=== PATIENT | female | born 1955 | race Two or more races ===

== ENCOUNTER 2018-12-05 05:51 | Day surgery (SDC) | payer BC ==
[~2018-12-05] VITALS: Ht 157.5 cm; Wt 57.6 kg
[2018-12-05] VITALS (8 sets, daily range): BP systolic 100–110; BP diastolic 47–66
[~2018-12-05 05:51] MED LIST: BIOTIN1 MG PO; CYMBALTA30 MG ORAL; ENBREL50 MG/1 M1 SUBQ; FOLIC ACID1 MG ORAL; IMIPRAMINE HCL25 MG PO; LEVOTHYROXINE75 MCG ORAL; POTASSIUM CHLOR8 ME3 PO; TRAZODONE HCL50 MG ORAL; VITAMIN D400 INTLU ORAL; XANAX0.25 MG ORAL; [UNRECOGNIZED DRUG - OTHER] PO
[2018-12-05] MEDS ORDERED: LR 1000ml 1,000 ML IVLG SCH ×2 (06:40→07:00)
--- NOTE | 2018-12-05 06:40 | Anethesia Preoperative Eval ---
Anesthesia Pre-op PMH/ROS General Date of Evaluation: December 05, 2018 Anesthesiologist: Rui ASA Score: ASA 2 Mallampati Score Class I : Soft palate, uvula, fauces, pillars visible Class II: Soft palate, uvula, fauces visible Class III: Soft palate, base of uvula visible Class IV: Only hard plate visible Mallampati Classification: Class II Surgeon: Dionne Diagnosis: Screening Surgical Procedure: colonoscopy Anesthesia History: none Family History: no anesthesia problems Allergies: Coded Allergies: SULFA (SULFONAMIDE ANTIBIOTICS) (Verified Allergy, Severe, 12/04/18) SWELLING, SKIN BREAK OUT Medications: see eMAR Patient NPO?: Yes NPO Date: December 04, 2018 NPO Time: 22:00 Past Medical History Cardiovascular: Denies: HTN, CAD, NV, valve dz, arrhythmia, other Pulmonary: Denies: asthma, COPD, BEN, other Gastrointestinal/Genitourinary: Reports: GERD; Denies: CRI, ESRD, other Neurologic/Psychiatric: Reports: depression/anxiety - panic disorder; Denies: dementia, CVA, TIA, other Endocrine: Reports: hypothyroidism; Denies: DM, steroids, other HEENT: Denies: cataract (L), cataract (R), glaucoma, [place] (L), [place] (R), other Hematology/Immune: Denies: anemia, DVT, bleeding disorder, other Musculoskeletal/Integumentary: Reports: other - RA; Denies: OA, RA, DJD, DDD, edema PSxH Narrative: c/s, lap appy Anesthesia Pre-op Phys. Exam Physician Exam Last Vital Signs Date Time Temp Pulse Resp B/P (MAP) Pulse Ox O2 Delivery O2 Flow Rate FiO2 12/05/18 06:22 Room Air 12/05/18 06:19 97.1 61 18 109/57 99 Constitutional: NAD Cardiovascular: RRR Respiratory: CTA Airway Exam Mallampati Score: Class II MO: full ROM: full Teeth: intact Anesthesia Pre-op A/P Labs see chart Studies Pre-op Studies: EKG - sr Risk Assessment & Plan Assessment: ASA II Plan: MAC Status Change Before Surgery: No Pre-Antibiotics Drug: N/A Mellissa Shah MD December 05, 2018 06:40
[2018-12-05] MEDS ORDERED: DiphenhydrAMINE 50mg/ml Inj IVP PRN (06:45)
[2018-12-05] MEDS ORDERED: Lidocaine 1% MPF 10mg/ml 5ml ONE (07:00)
[2018-12-05] MEDS ORDERED: Propofol 200mg/20ml IV ONE (07:00)
[2018-12-05] MEDS ORDERED: LR 1000ml ONE (07:00)
--- NOTE | 2018-12-05 07:06 | Pre-Procedure Note/Attestation ---
Pre-Procedure Note/Attestation Complete Prior to Procedure Planned Procedure: not applicable Procedure Narrative: Colonoscopy, possible biopsy, polypectomy, hemostasis, submucosal injection Indications for Procedure Pre-Operative Diagnosis: cancer screening Attestation I attest that I discussed the nature of the procedure; its benefits; risks and complications; and alternatives (and the risks and benefits of such alternatives ), prior to the procedure, with the patient (or the patient's legal loss prevention representative). I attest that, if there was a reasonable possibility of needing a blood transfusion, the patient (or the patient's legal loss prevention representative) was given the [facility] standardized written summary, pursuant to the Yovany Leonardo Blood Safety Act ([place] Health and Safety Code # 1645, as amended). I attest that I re-evaluated the patient just prior to the surgery and that there has been no change in the patient's H&P, except as documented below: Irene Truong MD December 05, 2018 07:06
--- NOTE | 2018-12-05 07:43 | Endoscopy Procedure Note ---
Endoscopy Procedure Note General Procedures Performed: colonoscopy Specimen: yes Pt Tolerated Procedure Well: Yes Estimated Blood Loss: minimal Anesthesia Anesthesiologist: Mellissa Fabian MD Anesthesia: moderate sedation Medications Medication Given: see anesthesia record Inserted Devices Implant(s) used?: No Quality Quality of Bowel Preparation: Excellent Did scope reach the cecum?: Yes Was there any complications?: No GI Core Measures 50 yrs or older w/o bx or poly: No 10yrs. F/U recommended: No Irene Truong MD December 05, 2018 07:43
--- NOTE | 2018-12-05 07:53 | Immediate Post-Op Evaluation ---
Immediate Post-Op Evalulation Immediate Post-Op Evalulation Procedure: Colonoscopy Date of Evaluation: December 05, 2018 Time of Evaluation: 07:54 IV Fluids: 500 Blood Products: 0 Estimated Blood Loss: 0 Urinary Output: 0 Blood Pressure Systolic: 100 Blood Pressure Diastolic: 47 Pulse Rate: 66 Respiratory Rate: 16 O2 Sat by Pulse Oximetry: 100 Temperature (Fahrenheit): 98.1 Pain Score (1-10): 0 Nausea: No Vomiting: No Complications 0 Patient Status: awake, reacts, patent, none Hydration Status: adequate Drug: N/A Mellissa Shah MD December 05, 2018 07:53
--- NOTE | 2018-12-05 07:54 | 48 Hour Post Anesthesia Eval ---
Post Anesthesia Evaluation Procedure: Colonoscopy Date of Evaluation: December 05, 2018 Airway: patent Nausea: No Vomiting: No Pain Intensity: 0 Hydration Status: adequate Cardiopulmonary Status: at baseline Mental Status/LOC: patient returned to baseline Post-Anesthesia Complications: 0 Follow-up care needed: ready to discharge Mellissa Shah MD December 05, 2018 07:54
--- NOTE | 2018-12-05 16:45 | Operative Note - Dictated ---
DATE OF OPERATION: 12/05/2018 PRE-PROCEDURE DIAGNOSIS: Cancer screening. POSTPROCEDURE DIAGNOSES: Polyps x2 (cecum, sigmoid colon), mild internal hemorrhoids, hypertrophied anal papilla. PROCEDURE: Colonoscopy with cold forceps biopsy. SURGEON: Irene Truong M.D. ANESTHESIOLOGIST: Mellissa Fabian M.D. ANESTHESIA: Propofol sedation. INDICATION FOR PROCEDURE: The patient is a 63-year-old [place] female, who was sent to my office by her physician, Dr. Cameron Lemon for colorectal surgical evaluation and for follow up colonoscopy. The patient's last colonoscopy was 10 years ago in 2008, which was negative per the patient. In light of the patient's age, it was determined at this time to proceed with a followup colonoscopy. DESCRIPTION OF PROCEDURE: Upon consent of the patient, the patient was brought to the procedure room, and placed in the left lateral decubitus position. Once adequate sedation was established with propofol drip, a digital rectal exam was performed, which showed some moderate internal hemorrhoids and hypertrophied anal papilla. Olympus colonoscope was advanced through the anus into the rectum. The descending colon, splenic flexure, transverse colon, hepatic flexure, and ascending colon were visualized. The cecum was easily reached and the ileocecal valve and appendiceal orifice were identified. The patient's prep was noted to be good. The terminal was intubated, was noted to be normal. The colonoscope was slowly withdrawn. There was noted to be a small benign-appearing polyp in the cecum and also in the sigmoid colon, which was removed with a cold forceps biopsy. These were sent off the field as a separate specimen. The post-polypectomy sites were noted to have no active bleeding. Upon reaching the rectum, the colonoscope was retroflexed and there was noted to be mild internal hemorrhoids and hypertrophied anal papilla. The scope was straightened, air was evacuated from the rectum, the colonoscope was removed. The patient was awakened from anesthesia and brought to postanesthesia recovery in stable condition. There were no complications. IMPRESSION: Polyps x2, mild internal hemorrhoids, hypertrophied anal papilla. PLAN: Repeat colonoscopy in 5 years, continue high-fiber diet, yearly followup. Irene Truong M.D. DR: [place] JOB#: [id number] CC: Irene Truong M.D.; Fax#: [phone] Cameron Lemon M.D.
== END 2018-12-05 09:00 | disposition home or self-care (01) ==
LOC: GAS 05:51
DX: Z12.11 Encounter for screening for malignant neoplasm of colon (principal); K63.5 Polyp of colon; K64.8 Other hemorrhoids; K62.89 Other specified diseases of anus and rectum; Z88.2 Allergy status to sulfonamides; K21.9 Gastro-esophageal reflux disease without esophagitis; M06.9 Rheumatoid arthritis, unspecified; F32.9 Major depressive disorder, single episode, unspecified; F41.9 Anxiety disorder, unspecified; E03.9 Hypothyroidism, unspecified; Z90.89 Acquired absence of other organs
CPT/HCPCS: 45380; J2704; 94003; 94150